=== PATIENT | male | born 1980 | race Caucasian/White ===

== ENCOUNTER 2017-12-02 05:47 | Inpatient (IN) | payer OTHER ==
[~2017-12-02] VITALS: Ht 177.8 cm; Wt 118.4 kg
--- NOTE | ~2017-12-02 | H ---
[address] [address] HISTORY AND PHYSICAL Name: ROXI CUEVAS Room: [address] IN [facility].#: [id number] Admission: 12/02/17 Attend Phys: Gianluca Siu DO Discharge: 12/04/17 Date of : 84 Report #: [id number] THIS REPORT FOR: //name// Please refer to the History and Physical performed in the physician's office. By: [id number] Records Staff HERIBERTO /JENNIFER
[~2017-12-02 05:47] MED LIST: ALTACE5 M1 PO; AMOXICILLIN500 M1 PO; ASPIRIN EC325 M1; CIPROFLOXACIN500 M3 OR; CIPROFLOXACIN750 MG PO; FLAGYL500 MG OR; FLAGYL500 MG PO; IBUPROFEN 200200 M1 PO; LISINOPRIL20 MG PO; MECLIZINE HCL25 M1 PO; NORCO 5-325 TA1 EACH PO; NORVASC 5 MG TAB5 MG OR; OMEPRAZOLE 20 M20 MG PO; PERCOCET 5-3251 EACH PO; PREDNISONE 20 M20 M1 PO; PROCTOCREAM-HC30 G1 RC; VENTOLIN HFA 1818 GM INH; VITAMIN D1000 UNI1 PO; ZESTORETIC 20-1 EAC3 PO; ZOFRAN4 MG PO; ZPAK PO
[2017-12-02 06:21] LABS: HEMATOCRIT 46.9 % (42.0-52.0); MCH 27.8 pg (26.0-34.0); MCHC 34.2 g/dL (28.0-37.0); MCV 81.2 fL (80.0-100.0); RBC 5.78 mil/uL (4.50-6.00); RDW-CV 13.6 % (10.5-14.5); WBC 14.3 thou/uL (4.0-11.0)
[2017-12-02 06:28] LABS: CREATININE 1.1 mg/dL (0.6-1.3); POTASSIUM 3.9 mmol/L (3.5-5.1)
[2017-12-02 06:32] LABS: ALBUMIN 4.1 g/dL (3.4-5.0); TOTAL BILIRUBIN 0.8 mg/dL (<0.1-1.0)
[2017-12-02 07:14] VITALS: BP 131/84
[2017-12-02 14:20] VITALS: BP 136/78
[2017-12-02 16:18] VITALS: BP 138/78
[2017-12-02 16:24] VITALS: BP 133/92
[2017-12-02 20:30] VITALS: BP 119/87
[2017-12-03 04:45] LABS: HEMATOCRIT 42.7 % (42.0-52.0); HEMOGLOBIN 14.3 gm/dL (14.0-18.0); MCH 27.2 pg (26.0-34.0); MCHC 33.4 g/dL (28.0-37.0); MCV 81.6 fL (80.0-100.0); MPV 8.5 fl. (7.2-11.1); NUCLEATED RBCS 0 /100WBC; PLATELET COUNT* 287 thou/uL (150-400); RBC 5.24 mil/uL (4.50-6.00); WBC 20.5 thou/uL (4.0-11.0)
[2017-12-03 05:05] LABS: CALCIUM 8.6 mg/dL (8.5-10.1); CREATININE 1.2 mg/dL (0.6-1.3); POTASSIUM 4.5 mmol/L (3.5-5.1)
[2017-12-03 05:55] LABS: ABSOLUTE LYMPHOCYTES 2.3 thou/uL (0.8-5.3); ABSOLUTE MONOCYTES 0.8 thou/uL (0.0-1.2); ABSOLUTE NEUTROPHILS 17.4 thou/uL (1.6-8.1); PLATELET ESTIMATE ADEQUATE
[2017-12-03 05:56] LABS: ANISOCYTOSIS 1+; POIKILOCYTOSIS 1+
--- NOTE | 2017-12-03 09:11 | EKG ---
[place] [address] ELECTROCARDIOGRAM REPORT Name: ROXI CUEVAS Room: [address] ADM IN [facility].#: [id number] Admission: 12/02/17 Attend Phys: Gianluca Siu DO Discharge: Date of : 84 Report #: [id number] THIS REPORT FOR: //name// [facility] Test Date: 2017-12-02 Test Time: 06:22:48 Pat Name: ROXI CUEVAS Department: Room: [place] [address] Gender: M Dehorner: LUIZ : 1980 Requested By: Gianluca Siu Order Number: [id number] Reading MD: Michael Pearce Measurements Intervals [place] Rate: 68 P: 24 AL: 131 QRS: 4 QRSD: 99 T: 14 QT: 400 QTc: 426 Interpretive Statements Sinus rhythm ST elev, probable normal early repol pattern Compared to ECG 09/12/2015 09:36:53 ST (T wave) deviation now present Sinus arrhythmia no longer present Electronically Signed On 12-03-2017 9:10:59 CDT by Michael Pearce [email or web address] <ELECTRONICALLY SIGNED> By: Michael Pearce MD, FAC 12/03/17 0910 0622 Michael Pearce MD, [facility] /EPI
[2017-12-03 09:26] VITALS: BP 125/88
--- NOTE | 2017-12-03 09:48 | OP ---
[address] [address] OPERATIVE REPORT Name: ROXI CUEVAS Room: [address] IN ..#: [id number] Admission: 12/02/17 Attend Phys: Gianluca Siu DO Discharge: Date of : 84 Report #: [id number] THIS REPORT FOR: //name// CC: Gianluca Hinton DO DATE OF SERVICE: 12/02/2017 PREOPERATIVE DIAGNOSIS: Recurrent sigmoid diverticulitis. POSTOPERATIVE DIAGNOSIS: Recurrent sigmoid diverticulitis. PROCEDURE: Laparoscopic sigmoid colectomy with end-to-end anastomosis and takedown of the splenic flexure. SURGEON: Gianluca Siu DO UTILIZATION MANAGER: Joe Blackmon DO, PGY1 resident. ANESTHESIA: General endotracheal. ESTIMATED BLOOD LOSS: 20 mL. COMPLICATIONS: None. REFERRING PHYSICIAN: Dr. Raji Foley. DESCRIPTION OF PROCEDURE: After obtaining proper consents and discussing risks and complications with the patient, he was taken to the operating room, laid on the supine position, administered general anesthesia. A Moore catheter was inserted. The patient was then placed in lithotomy position, prepped and draped in the usual fashion. A timeout was performed. We confirmed the appropriate patient and procedure. Preoperative antibiotics had been given. The patient had also done a 2-day at home bowel prep. He had SCDs in place. All necessary equipment was within the operating room. We then made a small supraumbilical skin incision with a #11 scalpel blade. This was carried down through the skin into the subcutaneous tissue using electrocautery for hemostasis. Once the fascia was encountered, it was incised along the midline, grasped and elevated with [facility] clamps. The peritoneum was then bluntly opened using a hemostat. A finger was placed inside the peritoneal cavity to assure that there were no keara-incisional adhesions. Next, 2-0 Vicryl sutures were placed in a [id number] fashion to secure the Rere trocar, which was then inserted and insufflation was begun. Once insufflation was complete, full visual inspection of the anterior abdominal organs was performed. [place] [address] OPERATIVE REPORT Name: ROXI CUEVAS Room: [address] IN [facility]#: [id number] Admission: 12/02/17 Attend Phys: Gianluca Siu DO Discharge: Date of : 84 Report #: [id number] adhesions in the left lower quadrant consistent with a history of acute diverticulitis in the past. We then placed the patient in Trendelenburg position. A 5-mm trocar was placed in the suprapubic position, a 12-mm trocar was placed in the right lower quadrant and another 5-mm trocar was placed in the right upper quadrant. We were then able to take down the adhesions of the sigmoid colon to the abdominal wall. We then scored the mesentery of the sigmoid colon medially all the way from the distal tattooed itzel up to the level of the inferior mesenteric artery. We also took down the white line of Toldt along the left pericolic gutter using electrocautery as well. I then medially began taking down the mesentery until we are completely through an avascular window in the mesentery. I then dissected using the LigaSure device down to the level of the distal tattooed region. At this point, we used an Endo-SARAVANAN 60-mm purple load to divide the distal sigmoid colon at the level of the distal tattooed itzel. Following this, the LigaSure was used to take down the mesentery more cephalad up above and beyond the inferior mesenteric artery and vein. These were taken using the LigaSure device. I then continued the dissection of the white line of Toldt along the left pericolic gutter all the way up to the splenic flexure. We then placed the patient in reverse Trendelenburg position and we were then able to take down the splenic flexure. This was done with a combination of going up the lateral aspect and then also we grasped the transverse colon and elevated the omentum. We then opened an avascular window into the lesser sac and the omentum was . The gastrocolic omentum was from the transverse colon and then we were able to go around the splenic flexure staying far away from the colon and using both LigaSure and electrocautery, also assuring no injury to the spleen. Once this area was completely freed, we were easily able to move the transverse colon and splenic flexure down. We then chose an area for proximal resection. The proximal tattoo was actually in the distal transverse colon and this area appeared completely normal as did the majority of the descending colon, so we did choose an area distal to the proximal tattooed area for resection. At this point, we marked that area and then we grasped the distal sigmoid colon. We then stopped the insufflation and a mini laparotomy incision was made through the supraumbilical incision, we just extended this slightly in order to place a wound protector and then we exteriorized the sigmoid colon. We identified our proximal resection area, which had been marked with electrocautery. We then used a TA 60 stapling device to divide the colon in this area. Adan clamps were then used to open the proximal colon and we then used EEA sizers and determined that a 31-mm EEA would easily fit. We then placed the anvil for the EEA into the proximal colon. We then used a reload for the TA stapler to close the colon and then brought the spike of the anvil out through the tenia coli. We then assured hemostasis and dropped this back into the peritoneal cavity. We then reinsufflated the abdominal cavity. A rigid sigmoidoscope was used to check the rectal stump to assure there was no leaking. We then used EEA sizers to dilate the anus and rectum to 31 mm. The EEA was then inserted and the spike of the EEA was opened anterior to the staple line. We then attached the anvil to the spike and the anastomosis was performed without [place] [address] OPERATIVE REPORT Name: ROXI CUEVAS Room: [address] IN [facility]#: [id number] Admission: 12/02/17 Attend Phys: Gianluca Siu DO Discharge: Date of : 84 Report #: [id number] anastomosis was performed, we did bubble test the anastomosis and assured that there was no leaking. We also used the [employer] technology in order to check the anastomosis for any vascular compromise. This was done by injecting 10 mg of indocyanine green intravascularly and then watching with our scope and the envy mode and we were able to see good blood flow to both the rectal stump and the descending colon, which was anastomosed to it. Following this, the area was copiously irrigated. A 15-[place] Braulio-Pearl drain was then placed through the 5-mm trocar site in the suprapubic region. It was sutured in place using 2-0 nylon suture. We then removed all the remaining trocars under direct vision. The fascia of the supraumbilical incision was closed using a running #1 looped PDS suture. The skin incisions were all injected with 0.5% Marcaine without epinephrine and then closed using 4-0 Monocryl subcuticular stitches. Mastisol, Steri-Strips, sterile OpSite and pressure dressings were placed. The patient tolerated the procedure well and was awakened in the operating room and transported to recovery room in stable condition. <ELECTRONICALLY SIGNED> By: Gianluca Siu DO 12/03/17 0948 1502 1605Aharman Siu DO /nt
[2017-12-03 16:15] VITALS: BP 140/98
[2017-12-03 20:00] VITALS: BP 155/90
[2017-12-04 04:00] VITALS: BP 138/87
[2017-12-04 04:35] LABS: HEMATOCRIT 42.3 % (42.0-52.0); HEMOGLOBIN 13.9 gm/dL (14.0-18.0); MCH 27.4 pg (26.0-34.0); MCHC 32.7 g/dL (28.0-37.0); MCV 83.6 fL (80.0-100.0); MPV 8.4 fl. (7.2-11.1); RBC 5.06 mil/uL (4.50-6.00); RDW-CV 13.6 % (10.5-14.5)
[2017-12-04 04:53] LABS: CALCIUM 8.5 mg/dL (8.5-10.1); CREATININE 1.2 mg/dL (0.6-1.3); PHOSPHORUS* 3.4 mg/dL (2.5-4.9); POTASSIUM 4.3 mmol/L (3.5-5.1)
[2017-12-04 09:00] VITALS: BP 145/74
[2017-12-04] MEDS ORDERED: HYDROCODON-ACE1 EAC7 PO (09:05)
[2017-12-04 16:00] VITALS: BP 146/93
[2017-12-04 17:15] VITALS: BP 146/93
[2017-12-04 17:20] VITALS: BP 146/93
== END 2017-12-04 18:30 | disposition home or self-care (01) | DRG 330 ==
LOC: M.TBA 05:47 → M.PRE 08:55 → M.ORTHSURG 12:56
PROVIDERS: ADMIT Surgery
PROC: 0DTN4ZZ Resection of Sigmoid Colon, Percutaneous Endoscopic Approach (ICD-10-PCS; principal; 2017-12-02)
DX: K57.32 Diverticulitis of large intestine without perforation or abscess without bleeding (principal); R65.10 Systemic inflammatory response syndrome (SIRS) of non-infectious origin without acute organ dysfunction; Z79.899 Other long term (current) drug therapy